=== PATIENT | female | born 1935 | race Caucasian/White ===

== ENCOUNTER → 2016-12-23 | Day surgery (SDC) | payer OTHER ==
[~2016-12-23] MED LIST: ACETAMINOPHEN PO; ADALAT CC PO; ASPIRIN PO; ASPIRIN325 M1 PO; ASPIRIN81 M1 PO; ASPIRIN81 M2 PO; ATENOLOL PO; BENAZEPRIL PO; CALCIUM + D 6001 TA1 PO; CALTRATE 600+D PO; CERTAGEN PO; COREG PO; COREG6.25 MG PO; DIOVAN PO; ECOTRIN325 MG PO; FIBER GUMMIES1 EACH PO; HCTZ PO; IMDUR PO; LIPITOR PO; LOSARTAN POTASS50 MG PO; LOTREL PO; MULTI-VITAMIN1 EAC1 PO; NITROGLYCERIN SPRAY; NITROGYLCERIN SUBLINGUAL; NITROSTAT0.4 MG SL; OYSTER CALCIUM500 MG PO; PLAVIX PO; PROCARDIA XL PO; SIMVASTATIN40 MG PO; SULAR PO; TYLENOL EXTRA500 M1 PO
--- NOTE | ~2016-12-23 | OR ---
Unit #: [id number] #: [id number] Patient: SHERITA LOZANO [id number] [address] [address] [id number] MR#: [id number] NAME: SHERITA LOZANO ROOM: Date of Procedure: 12/23/2016 Admission Date: 12/23/2016 Surgeon: Anurag Lance M.D. : 1935 Attending Physician: Anurag Lance M.D. Primary Care Physician: Sergo Azevedo M.D. OPERATIVE REPORT PREOPERATIVE DIAGNOSES Back pain, radiculopathy, spondylolisthesis, spinal stenosis, degenerative disk disease, postlaminectomy. POSTOPERATIVE DIAGNOSES Back pain, radiculopathy, spondylolisthesis, spinal stenosis, degenerative disk disease, postlaminectomy. PROCEDURE PERFORMED Lumbar epidural steroid injection with intravenous sedation and fluoroscopic guidance for needle localization. INDICATIONS FOR PROCEDURE The patient is an 81-year-old female, who had some bilateral lower extremity pain, tingling, numbness that has flared on and off, it settled somewhat; symptoms of having worsening back pain especially with increased activity, bending, or standing, prior L4-5 laminectomy. She has degenerative disk disease with anterolisthesis at L3-4, L4-5, [id number] facet arthropathy at multiple levels and multilevel protrusions. In the past several years ago with similar symptoms, she did very well with epidural steroids. She failed to settle with conservative measures, so plan is to repeat an epidural steroid injection at this point. DESCRIPTION OF PROCEDURE The patient was placed in a seated position. Standard monitors were applied. 2 mg of Versed were given for sedation and anxiolysis, which were adequate. Vital signs remained stable. Sterile prep and drape then of the lumbar area was performed. The skin then at the L4-5 level was localized with 1% lidocaine. An 18-gauge Stroodletead needle was then advanced via loss of resistance technique and fluoroscopic guidance in toward the epidural space. After confirming proper positioning with fluoroscopy and radiographic contrast, 80 mg of Depo-Medrol and 4 mL of 0.5% lidocaine were deposited. The patient tolerated the procedure otherwise well and was discharged to the recovery room in stable condition. Dictated by... Anurag Lance M.D. [facility]/lisy TD: 12/23/2016 09:56 Unit #: [id number] #: [id number] Patient: SHERITA LOZANO JOB #: [id number] OPERATIVE REPORT Page 1 of 1 X Anurag Lance MD X PROCEDURE OPERATIVE NOTE
== END | disposition home or self-care (01) ==
LOC: CCSC 07:02
DX: M51.16 Intervertebral disc disorders with radiculopathy, lumbar region (principal); M43.16 Spondylolisthesis, lumbar region; M48.06 Spinal stenosis, lumbar region; I25.10 Atherosclerotic heart disease of native coronary artery without angina pectoris; I10 Essential (primary) hypertension; K21.9 Gastro-esophageal reflux disease without esophagitis; Z88.5 Allergy status to narcotic agent; Z88.8 Allergy status to other drugs, medicaments and biological substances; Z79.82 Long term (current) use of aspirin; Z79.899 Other long term (current) drug therapy; Z98.890 Other specified postprocedural states
CPT/HCPCS: J1040; J2250